=== PATIENT | female | born 1945 | race Two or more races ===

== ENCOUNTER 2017-05-07 18:07 | Inpatient (IN) | payer MEDICARE, OTHER ==
[~2017-05-07] VITALS: Ht 157.5 cm; Wt 65.9 kg
[~2017-05-07 18:07] MED LIST: ALLO100T PO; AMLO2.5T29 PO; ARIP20TA PO; GABA800T PO; HYDROMORPHONE 4 MG PO; INSU100V12 SQ; LEVO75TA4 PO; LIDOP TD; MERO1I IV; METF10002 PO; OMEP40CA12 PO; PRAS5TAB3 PO; PRAV10TA2 PO; RALO60 PO; TRAZ-147 PO; VITAD1000 PO
[2017-05-07] MEDS ORDERED: DEXTROSE 50%-WATER 25 GM/50 ML SYRINGE IVP PRN (18:30)
[2017-05-07] MEDS ORDERED: INSULIN ASPART 100 UNITS/ML SQ PRN (18:30)
[2017-05-07] MEDS ORDERED: POTASSIUM CHL 10 MEQ/WATER 50 ML IV PRN (18:45)
[2017-05-07] MEDS ORDERED: POTASSIUM CHLORIDE 20 MEQ ER TABLET PO PRN (18:45)
[2017-05-07] MEDS ORDERED: MAGNESIUM SULFATE 2 GM in DEXTROSE 5%-WATER 50 ML IV PRN (18:45)
[2017-05-07] MEDS ORDERED: MAGNESIUM SULFATE 4 GM/WATER 100 ML IV PRN (18:45)
[2017-05-07 19:06] VITALS: BP 98/55
[2017-05-07 20:12] LABS: BASOPHILS # (AUTO) 0.04 K/uL (0.00-0.20); BASOPHILS % (AUTO) 0.7 % (0.0-2.0); EOSINOPHILS # (AUTO) 0.21 K/uL (0.00-0.70); HEMATOCRIT 31.2 % (36-46); HEMOGLOBIN 10.5 g/dL (12.0-16.0); LYMPHOCYTES # (AUTO) 1.9 K/uL (1.0-4.8); LYMPHOCYTES % (AUTO) 33.5 % (22.0-44.0); MEAN CORPUSCULAR HEMOGLOBIN 31.6 pg (26.0-34.0); MEAN CORPUSCULAR HGB CONC 33.8 G/dL (31.0-37.0); MEAN CORPUSCULAR VOLUME 94 fL (80-100); MONOCYTES # (AUTO) 0.4 K/uL (0.1-1.0); MONOCYTES % (AUTO) 6.9 % (2.0-9.0); NEUTROPHILS # (AUTO) 3.1 K/uL (1.8-7.7); NEUTROPHILS % (AUTO) 55.3 % (40.0-70.0); PLATELET COUNT (AUTO) 245 K/uL (150-450); RED BLOOD CELL COUNT(AUTO) 3.33 MIL/uL (4.00-5.20); RED CELL DISTRIBUTION WIDTH 17.3 % (11.5-14.5); WHITE BLOOD COUNT (AUTO) 5.6 K/uL (4.5-11.0)
[2017-05-07 20:18] LABS: ALBUMIN 3.5 g/dL (3.4-5.0); BILIRUBIN,TOTAL 0.2 mg/dL (0.1-1.0); CALCIUM, TOTAL 9.1 mg/dL (8.8-10.5); CREATININE 1.46 mg/dL (0.60-1.30); POTASSIUM 4.1 mmol/L (3.5-5.1); TOTAL PROTEIN, SERUM 7.1 g/dL (6.4-8.2)
[2017-05-07] MEDS: GABAPENTIN 400 MG CAPSULE PO SCH (21:20)
[2017-05-07] MEDS: TraZODone HCL 150 MG TABLET PO SCH (21:20)
[2017-05-07 21:43] LABS: GLUCOSE,POINT OF CARE 98 MG/DL (70-110)
[2017-05-07 22:41] LABS: RBC MORPHOLOGY COMMENT ABNORMAL RBC MORPH
[2017-05-08] VITALS (7 sets, daily range): BP systolic 110–147; BP diastolic 65–86
[2017-05-08] MEDS: LEVOTHYROXINE SODIUM 50 MCG TABLET PO SCH (05:25)
[2017-05-08 06:32] LABS: BASOPHILS % (AUTO) 0.8 % (0.0-2.0); EOSINOPHILS % (AUTO) 4.8 % (1.0-6.0); HEMATOCRIT 31.4 % (36-46); HEMOGLOBIN 10.7 g/dL (12.0-16.0); LYMPHOCYTES # (AUTO) 1.8 K/uL (1.0-4.8); LYMPHOCYTES % (AUTO) 38.4 % (22.0-44.0); MEAN CORPUSCULAR HGB CONC 34.1 G/dL (31.0-37.0); MEAN CORPUSCULAR VOLUME 94 fL (80-100); MONOCYTES # (AUTO) 0.4 K/uL (0.1-1.0); MONOCYTES % (AUTO) 8.2 % (2.0-9.0); NEUTROPHILS # (AUTO) 2.2 K/uL (1.8-7.7); NEUTROPHILS % (AUTO) 47.8 % (40.0-70.0); PLATELET COUNT (AUTO) 224 K/uL (150-450); RED BLOOD CELL COUNT(AUTO) 3.35 MIL/uL (4.00-5.20); RED CELL DISTRIBUTION WIDTH 16.9 % (11.5-14.5); WHITE BLOOD COUNT (AUTO) 4.7 K/uL (4.5-11.0)
[2017-05-08 06:58] LABS: ALBUMIN 3.2 g/dL (3.4-5.0); BILIRUBIN,TOTAL 0.3 mg/dL (0.1-1.0); CALCIUM, TOTAL 8.7 mg/dL (8.8-10.5); CREATININE 1.47 mg/dL (0.60-1.30); MAGNESIUM 1.7 mg/dL (1.80-2.40); PHOSPHORUS 4.4 mg/dL (2.5-4.9); POTASSIUM 4.1 mmol/L (3.5-5.1); TOTAL PROTEIN, SERUM 6.5 g/dL (6.4-8.2)
[2017-05-08 08:45] LABS: APPEARANCE,URINE CLOUDY (CLEAR); GLUCOSE, URINE (UA) NEGATIVE (NEGATIVE); KETONES,URINE NEGATIVE (NEGATIVE); LEUKOCYTE ESTERASE ,URINE MODERATE (NEGATIVE); OCCULT BLOOD,URINE NEGATIVE (NEGATIVE); PROTEIN,URINE NEGATIVE (NEGATIVE)
[2017-05-08] MEDS: MetFORMIN HCL 500 MG TABLET PO SCH ×2 (08:53→17:15)
[2017-05-08] MEDS: GABAPENTIN 400 MG CAPSULE PO SCH ×4 (08:53→20:20)
[2017-05-08] MEDS: OMEPRAZOLE 20 MG CAPSULE PO SCH (08:54)
[2017-05-08] MEDS: ARIPiprazole 10 MG TABLET PO SCH (08:54)
[2017-05-08] MEDS: PRAVASTATIN SODIUM 20 MG TABLET PO SCH (08:54)
[2017-05-08] MEDS: PRASUGREL HCL 10 MG TABLET PO SCH (08:54)
[2017-05-08] MEDS ORDERED: LOSARTAN POTASSIUM 25 MG TABLET PO SCH (09:00)
[2017-05-08 09:04] LABS: ADD UA MICROSCOPIC YES; RBC,URINE 0-2 /HPF (0-2); SQUAMOUS EPITHELIAL CELL,UR Few /LPF (None Seen); WBC,URINE 51-100 /HPF (0-5)
[2017-05-08 09:09] LABS: INFLUENZA TYPE B NEGATIVE FOR TYPE B (NEGATIVE)
[2017-05-08 11:28] LABS: GLUCOSE,POINT OF CARE 100 MG/DL (70-110)
[2017-05-08] MEDS: ENOXAPARIN SODIUM 30 MG/0.3 ML PF SYRINGE SQ SCH (11:54)
[2017-05-08] MEDS ORDERED: SODIUM CHLORIDE 0.9% 1,000 ML IV ONE (12:15)
[2017-05-08] MEDS: MAGNESIUM OXIDE 400 MG TABLET PO PRN ×2 (12:21→20:20)
[2017-05-08] MEDS: MEROPENEM 1 GM in SODIUM CHLORIDE 0.9% 100 ML IV SCH ×2 (13:11→23:10)
[2017-05-08 19:57] LABS: GLUCOSE,POINT OF CARE 135 MG/DL (70-110)
[2017-05-08 19:57] LABS: GLUCOSE,POINT OF CARE 99 MG/DL (70-110)
[2017-05-08] MEDS: TraZODone HCL 150 MG TABLET PO SCH (20:19)
[2017-05-08 21:28] LABS: GLUCOSE,POINT OF CARE 110 MG/DL (70-110)
[2017-05-09 05:14] VITALS: BP 124/82
[2017-05-09] MEDS: LEVOTHYROXINE SODIUM 50 MCG TABLET PO SCH (05:57)
[2017-05-09 07:11] VITALS: BP 128/72
[2017-05-09 07:34] LABS: ALBUMIN 3.1 g/dL (3.4-5.0); BILIRUBIN,TOTAL 0.2 mg/dL (0.1-1.0); CALCIUM, TOTAL 8.4 mg/dL (8.8-10.5); CREATININE 1.29 mg/dL (0.60-1.30); MAGNESIUM 1.7 mg/dL (1.80-2.40); PHOSPHORUS 3.2 mg/dL (2.5-4.9); POTASSIUM 4.3 mmol/L (3.5-5.1); TOTAL PROTEIN, SERUM 6.9 g/dL (6.4-8.2)
[2017-05-09 07:37] LABS: BASOPHILS # (AUTO) 0.05 K/uL (0.00-0.20); BASOPHILS % (AUTO) 0.7 % (0.0-2.0); EOSINOPHILS # (AUTO) 0.27 K/uL (0.00-0.70); EOSINOPHILS % (AUTO) 3.96 % (1.0-6.0); HEMATOCRIT 33.3 % (36-46); HEMOGLOBIN 11.2 g/dL (12.0-16.0); LYMPHOCYTES # (AUTO) 2.2 K/uL (1.0-4.8); LYMPHOCYTES % (AUTO) 32.2 % (22.0-44.0); MEAN CORPUSCULAR HEMOGLOBIN 31.6 pg (26.0-34.0); MEAN CORPUSCULAR HGB CONC 33.7 G/dL (31.0-37.0); MEAN CORPUSCULAR VOLUME 94 fL (80-100); MONOCYTES # (AUTO) 0.4 K/uL (0.1-1.0); MONOCYTES % (AUTO) 6.4 % (2.0-9.0); NEUTROPHILS # (AUTO) 3.8 K/uL (1.8-7.7); NEUTROPHILS % (AUTO) 56.8 % (40.0-70.0); PLATELET COUNT (AUTO) 219 K/uL (150-450); RED BLOOD CELL COUNT(AUTO) 3.54 MIL/uL (4.00-5.20); RED CELL DISTRIBUTION WIDTH 17.2 % (11.5-14.5); WHITE BLOOD COUNT (AUTO) 6.8 K/uL (4.5-11.0)
[2017-05-09 07:39] LABS: RBC MORPHOLOGY COMMENT ABNORMAL RBC MORPH
[2017-05-09] MEDS: MetFORMIN HCL 500 MG TABLET PO SCH ×2 (08:02→17:47)
[2017-05-09] MEDS: OMEPRAZOLE 20 MG CAPSULE PO SCH (08:02)
[2017-05-09] MEDS: PRASUGREL HCL 10 MG TABLET PO SCH (08:02)
[2017-05-09] MEDS: PRAVASTATIN SODIUM 20 MG TABLET PO SCH (08:02)
[2017-05-09] MEDS: ARIPiprazole 10 MG TABLET PO SCH (08:02)
[2017-05-09] MEDS: ENOXAPARIN SODIUM 30 MG/0.3 ML PF SYRINGE SQ SCH (08:03)
[2017-05-09] MEDS: GABAPENTIN 400 MG CAPSULE PO SCH ×4 (08:04→20:04)
[2017-05-09 10:57] LABS: INR 0.9 (0.9-1.1)
[2017-05-09 11:42] VITALS: BP 119/77
[2017-05-09] MEDS: MEROPENEM 1 GM in SODIUM CHLORIDE 0.9% 100 ML IV SCH ×2 (11:57→23:25)
[2017-05-09] MEDS ORDERED: SODIUM CHLORIDE 0.9% 1,000 ML IV ONE (15:17)
[2017-05-09 16:06] VITALS: BP 134/90
[2017-05-09] MEDS: MAGNESIUM OXIDE 400 MG TABLET PO PRN ×2 (18:05→23:26)
[2017-05-09] MEDS: TraZODone HCL 150 MG TABLET PO SCH (20:04)
[2017-05-09 20:05] VITALS: BP 137/73
[2017-05-09 23:10] VITALS: BP 102/61
[2017-05-10 01:52] LABS: GLUCOSE,POINT OF CARE 113 MG/DL (70-110)
[2017-05-10 01:53] LABS: GLUCOSE,POINT OF CARE 102 MG/DL (70-110)
[2017-05-10 04:50] VITALS: BP 116/75
[2017-05-10] MEDS: LEVOTHYROXINE SODIUM 50 MCG TABLET PO SCH (05:13)
[2017-05-10 06:54] LABS: BASOPHILS # (AUTO) 0.04 K/uL (0.00-0.20); BASOPHILS % (AUTO) 0.7 % (0.0-2.0); EOSINOPHILS # (AUTO) 0.23 K/uL (0.00-0.70); EOSINOPHILS % (AUTO) 3.88 % (1.0-6.0); HEMATOCRIT 30.8 % (36-46); HEMOGLOBIN 10.4 g/dL (12.0-16.0); LYMPHOCYTES # (AUTO) 1.3 K/uL (1.0-4.8); MEAN CORPUSCULAR HEMOGLOBIN 31.4 pg (26.0-34.0); MEAN CORPUSCULAR HGB CONC 33.9 G/dL (31.0-37.0); MEAN CORPUSCULAR VOLUME 93 fL (80-100); MONOCYTES # (AUTO) 0.3 K/uL (0.1-1.0); MONOCYTES % (AUTO) 5.6 % (2.0-9.0); NEUTROPHILS # (AUTO) 4.1 K/uL (1.8-7.7); NEUTROPHILS % (AUTO) 67.9 % (40.0-70.0); PLATELET COUNT (AUTO) 202 K/uL (150-450); RED BLOOD CELL COUNT(AUTO) 3.32 MIL/uL (4.00-5.20); WHITE BLOOD COUNT (AUTO) 6.1 K/uL (4.5-11.0)
[2017-05-10 07:13] LABS: ALBUMIN 3.1 g/dL (3.4-5.0); BILIRUBIN,TOTAL 0.2 mg/dL (0.1-1.0); CALCIUM, TOTAL 8.3 mg/dL (8.8-10.5); CREATININE 1.24 mg/dL (0.60-1.30); MAGNESIUM 1.9 mg/dL (1.80-2.40); PHOSPHORUS 2.8 mg/dL (2.5-4.9); POTASSIUM 4.1 mmol/L (3.5-5.1); TOTAL PROTEIN, SERUM 6.5 g/dL (6.4-8.2)
[2017-05-10 07:35] VITALS: BP 120/77
[2017-05-10] MEDS: ENOXAPARIN SODIUM 30 MG/0.3 ML PF SYRINGE SQ SCH (08:03)
[2017-05-10] MEDS: PRASUGREL HCL 10 MG TABLET PO SCH (08:03)
[2017-05-10] MEDS: GABAPENTIN 400 MG CAPSULE PO SCH ×4 (08:03→21:20)
[2017-05-10] MEDS: PRAVASTATIN SODIUM 20 MG TABLET PO SCH (08:04)
[2017-05-10] MEDS: OMEPRAZOLE 20 MG CAPSULE PO SCH (08:04)
[2017-05-10] MEDS: MetFORMIN HCL 500 MG TABLET PO SCH ×2 (08:04→17:07)
[2017-05-10] MEDS: ARIPiprazole 10 MG TABLET PO SCH (08:05)
[2017-05-10 08:31] LABS: RBC MORPHOLOGY COMMENT ABNORMAL RBC MORPH
[2017-05-10 10:17] LABS: TOTAL PROTEIN URINE 14.9 mg/dL (Not Estab.)
[2017-05-10 11:44] VITALS: BP 115/68
[2017-05-10] MEDS: MEROPENEM 1 GM in SODIUM CHLORIDE 0.9% 100 ML IV SCH (11:55)
[2017-05-10 12:56] LABS: MYOGLOBIN URINE <2 ng/mL (0-13)
[2017-05-10 15:32] LABS: GLUCOSE,POINT OF CARE 90 MG/DL (70-110)
[2017-05-10 15:46] VITALS: BP 116/81
[2017-05-10 20:11] VITALS: BP 124/78
[2017-05-10] MEDS: TraZODone HCL 150 MG TABLET PO SCH (21:20)
[2017-05-10] MEDS: CefoTEtan DISOD 2 GM/DEXTROSE 50 ML IV SCH (21:20)
[2017-05-10] MEDS ORDERED: AZITHROMYCIN 250 MG TABLET PO ONE (22:00)
[2017-05-11 00:14] VITALS: BP 104/57
[2017-05-11 04:35] VITALS: BP 120/77
[2017-05-11] MEDS: LEVOTHYROXINE SODIUM 50 MCG TABLET PO SCH (06:35)
[2017-05-11 06:53] LABS: GLUCOSE,POINT OF CARE 93 MG/DL (70-110)
[2017-05-11 06:53] LABS: GLUCOSE,POINT OF CARE 93 MG/DL (70-110)
[2017-05-11 07:00] LABS: BILIRUBIN,TOTAL 0.2 mg/dL (0.1-1.0); CALCIUM, TOTAL 8.2 mg/dL (8.8-10.5); CREATININE 1.22 mg/dL (0.60-1.30); MAGNESIUM 1.9 mg/dL (1.80-2.40); PHOSPHORUS 2.4 mg/dL (2.5-4.9); POTASSIUM 4.2 mmol/L (3.5-5.1); TOTAL PROTEIN, SERUM 6.5 g/dL (6.4-8.2)
[2017-05-11 07:16] LABS: BASOPHILS % (AUTO) 0.6 % (0.0-2.0); EOSINOPHILS % (AUTO) 3.9 % (1.0-6.0); HEMATOCRIT 30.3 % (36-46); HEMOGLOBIN 10.1 g/dL (12.0-16.0); LYMPHOCYTES # (AUTO) 1.6 K/uL (1.0-4.8); LYMPHOCYTES % (AUTO) 29.4 % (22.0-44.0); MEAN CORPUSCULAR HEMOGLOBIN 31.6 pg (26.0-34.0); MEAN CORPUSCULAR HGB CONC 33.5 G/dL (31.0-37.0); MEAN CORPUSCULAR VOLUME 94 fL (80-100); MONOCYTES # (AUTO) 0.4 K/uL (0.1-1.0); NEUTROPHILS # (AUTO) 3.1 K/uL (1.8-7.7); NEUTROPHILS % (AUTO) 58.1 % (40.0-70.0); PLATELET COUNT (AUTO) 206 K/uL (150-450); RED BLOOD CELL COUNT(AUTO) 3.21 MIL/uL (4.00-5.20); RED CELL DISTRIBUTION WIDTH 17.4 % (11.5-14.5); WHITE BLOOD COUNT (AUTO) 5.3 K/uL (4.5-11.0)
[2017-05-11 08:05] VITALS: BP 121/67
[2017-05-11] MEDS: ENOXAPARIN SODIUM 30 MG/0.3 ML PF SYRINGE SQ SCH (08:13)
[2017-05-11] MEDS: OMEPRAZOLE 20 MG CAPSULE PO SCH (08:14)
[2017-05-11] MEDS: AZITHROMYCIN 250 MG TABLET PO SCH (08:14)
[2017-05-11] MEDS: PRASUGREL HCL 10 MG TABLET PO SCH (08:14)
[2017-05-11] MEDS: MetFORMIN HCL 500 MG TABLET PO SCH ×2 (08:14→17:53)
[2017-05-11] MEDS: PRAVASTATIN SODIUM 20 MG TABLET PO SCH (08:14)
[2017-05-11] MEDS: GABAPENTIN 400 MG CAPSULE PO SCH ×4 (08:15→20:45)
[2017-05-11] MEDS: ARIPiprazole 10 MG TABLET PO SCH (08:15)
[2017-05-11 09:08] LABS: RBC MORPHOLOGY COMMENT ABNORMAL RBC MORPH
[2017-05-11 11:25] VITALS: BP 121/74
[2017-05-11 12:32] LABS: ORGANISM ID Not indicated.
[2017-05-11 16:38] VITALS: BP 125/79
[2017-05-11 20:00] VITALS: BP 110/60
[2017-05-11] MEDS: CefoTEtan DISOD 2 GM/DEXTROSE 50 ML IV SCH (20:44)
[2017-05-11] MEDS: TraZODone HCL 150 MG TABLET PO SCH (20:44)
[2017-05-12] VITALS: BP 103/65
[2017-05-12 04:06] VITALS: BP 109/63
[2017-05-12] MEDS: LEVOTHYROXINE SODIUM 50 MCG TABLET PO SCH (06:26)
[2017-05-12 06:38] LABS: GLUCOSE,POINT OF CARE 93 MG/DL (70-110)
[2017-05-12 06:43] LABS: GLUCOSE,POINT OF CARE 102 MG/DL (70-110)
[2017-05-12 06:44] LABS: GLUCOSE,POINT OF CARE 102 MG/DL (70-110)
[2017-05-12 06:48] LABS: GLUCOSE,POINT OF CARE 86 MG/DL (70-110)
[2017-05-12 06:48] LABS: GLUCOSE,POINT OF CARE 100 MG/DL (70-110)
[2017-05-12 06:48] LABS: GLUCOSE,POINT OF CARE 107 MG/DL (70-110)
[2017-05-12 06:48] LABS: GLUCOSE,POINT OF CARE 85 MG/DL (70-110)
[2017-05-12 06:48] LABS: GLUCOSE,POINT OF CARE 100 MG/DL (70-110)
[2017-05-12 07:41] VITALS: BP 107/68
[2017-05-12] MEDS: ENOXAPARIN SODIUM 30 MG/0.3 ML PF SYRINGE SQ SCH (08:12)
[2017-05-12] MEDS: PRAVASTATIN SODIUM 20 MG TABLET PO SCH (08:13)
[2017-05-12] MEDS: ARIPiprazole 10 MG TABLET PO SCH (08:13)
[2017-05-12] MEDS: OMEPRAZOLE 20 MG CAPSULE PO SCH (08:13)
[2017-05-12] MEDS: AZITHROMYCIN 250 MG TABLET PO SCH (08:13)
[2017-05-12] MEDS: GABAPENTIN 400 MG CAPSULE PO SCH ×2 (08:13→13:32)
[2017-05-12] MEDS: PRASUGREL HCL 10 MG TABLET PO SCH (08:13)
[2017-05-12] MEDS: MetFORMIN HCL 500 MG TABLET PO SCH (08:13)
[2017-05-12] MEDS ORDERED: CEFO2I IV (10:13)
[2017-05-12] MEDS ORDERED: AZIT250T9 PO (10:14)
[2017-05-12] MEDS ORDERED: TRAZ150 PO (10:15)
[2017-05-12 12:07] LABS: GLUCOSE,POINT OF CARE 112 MG/DL (70-110)
[2017-05-14 11:03] LABS: ALBUMIN/GLOBULIN RAITO (PEP) 1.1 (0.7-1.7); ALPHA-1 GLOBULINS(PEP) 0.2 g/dL (0.0-0.4); ALPHA-2 GLOBULINS (PEP) 0.8 g/dL (0.4-1.0); BETA (PEP) 0.9 g/dL (0.7-1.3); GLOBULIN TOTAL (PEP) 2.9 g/dL (2.2-3.9); M-SPIKE (PEP) Not Observed g/dL (Not Observed); TOTAL PROTEIN 6.2 g/dL (6.0-8.5)
[2017-05-15 05:07] LABS: TOTAL PROTEIN URINE 9.2 mg/dL (Not Estab.)
== END 2017-05-12 14:05 | disposition home or self-care (01) | DRG 698 ==
LOC: 6N 18:15
PROVIDERS: ADMIT Internal Medicine; ATTEND Internal Medicine
PROC: 02HV33Z Insertion of Infusion Device into Superior Vena Cava, Percutaneous Approach (ICD-10-PCS; principal; 2017-05-07)
DX: N14.2 Nephropathy induced by unspecified drug, medicament or biological substance (principal); J18.9 Pneumonia, unspecified organism; D70.9 Neutropenia, unspecified; E11.22 Type 2 diabetes mellitus with diabetic chronic kidney disease; E11.42 Type 2 diabetes mellitus with diabetic polyneuropathy; J47.0 Bronchiectasis with acute lower respiratory infection; N39.0 Urinary tract infection, site not specified; E44.1 Mild protein-calorie malnutrition; J21.9 Acute bronchiolitis, unspecified; Z94.0 Kidney transplant status; B96.20 Unspecified Escherichia coli [E. coli] as the cause of diseases classified elsewhere; E03.9 Hypothyroidism, unspecified; E78.2 Mixed hyperlipidemia; F32.9 Major depressive disorder, single episode, unspecified; G89.4 Chronic pain syndrome; H91.90 Unspecified hearing loss, unspecified ear; I13.10 Hypertensive heart and chronic kidney disease without heart failure, with stage 1 through stage 4 chronic kidney disease, or unspecified chronic kidney disease; I25.10 Atherosclerotic heart disease of native coronary artery without angina pectoris; I25.83 Coronary atherosclerosis due to lipid rich plaque; I70.0 Atherosclerosis of aorta; J43.9 Emphysema, unspecified; K21.9 Gastro-esophageal reflux disease without esophagitis; M10.9 Gout, unspecified; M48.07 Spinal stenosis, lumbosacral region; M81.0 Age-related osteoporosis without current pathological fracture; N18.3 Chronic kidney disease, stage 3 (moderate); Z16.12 Extended spectrum beta lactamase (ESBL) resistance; Z16.24 Resistance to multiple antibiotics; Z85.118 Personal history of other malignant neoplasm of bronchus and lung; Z87.440 Personal history of urinary (tract) infections; Z87.442 Personal history of urinary calculi; Z87.891 Personal history of nicotine dependence; Z90.710 Acquired absence of both cervix and uterus; Z91.19 Patient's noncompliance with other medical treatment and regimen; Z92.21 Personal history of antineoplastic chemotherapy; Z92.3 Personal history of irradiation; Z98.61 Coronary angioplasty status; T50.905A Adverse effect of unspecified drugs, medicaments and biological substances, initial encounter
CPT/HCPCS: 36245; 36569; 71020; 71250; 76770; 76937; 82043; 82570; 82607; 82668; 82746; 82962; 83540; 83550; 83735; 83874; 84100; 84145; 84155; 84156; 84165; 84166; 84300; 86738; 87040; 87081; 87086; 87449; 87804; 87899; J1650; J2185; J3490; J7030; J7050

== ENCOUNTER 2017-06-27 14:07 | Inpatient (IN) | payer MEDICARE, OTHER ==
[~2017-06-27] VITALS: Ht 157.5 cm; Wt 63.8 kg
[~2017-06-27 14:07] MED LIST changes: -ALLO100T PO; -AMLO2.5T29 PO; +AZIT250T9 PO; +CEFO2I IV; -INSU100V12 SQ; -LIDOP TD; -MERO1I IV; -RALO60 PO; -TRAZ-147 PO; +TRAZ150 PO; -VITAD1000 PO
[2017-06-27 14:39] VITALS: BP 114/64
[2017-06-27] MEDS ORDERED: OMEP20 PO (15:52)
[2017-06-27] MEDS ORDERED: LOSA25TA21 PO (15:52)
[2017-06-27] MEDS ORDERED: TAPE200T PO (15:52)
[2017-06-27] MEDS ORDERED: HYDR2 PO (15:52)
[2017-06-27] MEDS ORDERED: ALLO100T PO (15:52)
[2017-06-27] MEDS ORDERED: LEVO50 PO (16:10)
[2017-06-27] MEDS: GABAPENTIN 400 MG CAPSULE PO SCH ×2 (16:15→20:10)
[2017-06-27] MEDS: MetFORMIN HCL 500 MG TABLET PO SCH (18:15)
[2017-06-27 19:27] LABS: BASOPHILS % (AUTO) 0.9 % (0.0-2.0); EOSINOPHILS % (AUTO) 4.6 % (1.0-6.0); HEMATOCRIT 29.3 % (36-46); LYMPHOCYTES # (AUTO) 2.1 K/uL (1.0-4.8); LYMPHOCYTES % (AUTO) 30.6 % (22.0-44.0); MEAN CORPUSCULAR HGB CONC 34.3 G/dL (31.0-37.0); MEAN CORPUSCULAR VOLUME 93 fL (80-100); MONOCYTES # (AUTO) 0.4 K/uL (0.1-1.0); MONOCYTES % (AUTO) 6.1 % (2.0-9.0); NEUTROPHILS % (AUTO) 57.8 % (40.0-70.0); PLATELET COUNT (AUTO) 245 K/uL (150-450); RED BLOOD CELL COUNT(AUTO) 3.14 MIL/uL (4.00-5.20); RED CELL DISTRIBUTION WIDTH 16.3 % (11.5-14.5)
[2017-06-27 19:35] VITALS: BP 128/77
[2017-06-27 19:53] LABS: ALBUMIN 3.3 g/dL (3.4-5.0); BILIRUBIN,TOTAL 0.2 mg/dL (0.1-1.0); CALCIUM, TOTAL 8.8 mg/dL (8.8-10.5); CREATININE 1.53 mg/dL (0.60-1.30); MAGNESIUM 1.7 mg/dL (1.80-2.40); POTASSIUM 4.9 mmol/L (3.5-5.1); TOTAL PROTEIN, SERUM 6.8 g/dL (6.4-8.2)
[2017-06-27] MEDS: TraZODone HCL 150 MG TABLET PO SCH (20:09)
[2017-06-27 20:54] LABS: APPEARANCE,URINE CLOUDY (CLEAR); GLUCOSE, URINE (UA) NEGATIVE (NEGATIVE); KETONES,URINE NEGATIVE (NEGATIVE); LEUKOCYTE ESTERASE ,URINE LARGE (NEGATIVE); OCCULT BLOOD,URINE TRACE (NEGATIVE); PH,URINE 5.5 (5.0-8.0); PROTEIN,URINE NEGATIVE (NEGATIVE)
[2017-06-27 20:55] LABS: ADD UA MICROSCOPIC YES
[2017-06-27 20:58] LABS: SQUAMOUS EPITHELIAL CELL,UR Few /LPF (None Seen); WBC,URINE 51-100 /HPF (0-5)
[2017-06-27] MEDS ORDERED: [UNRECOGNIZED DRUG - OTHER] PO SCH (21:00)
[2017-06-27] MEDS ORDERED: MAGNESIUM SULFATE 4 GM/WATER 100 ML IV PRN (22:00)
[2017-06-27] MEDS ORDERED: MAGNESIUM SULFATE 2 GM in DEXTROSE 5%-WATER 50 ML IV PRN (22:00)
[2017-06-27] MEDS: MAGNESIUM OXIDE 400 MG TABLET PO PRN (22:27)
[2017-06-27 23:49] VITALS: BP 112/63
[2017-06-28] MEDS: MAGNESIUM OXIDE 400 MG TABLET PO PRN ×2 (04:26→11:39)
[2017-06-28 04:31] VITALS: BP 118/72
[2017-06-28 06:59] LABS: BASOPHILS # (AUTO) 0.04 K/uL (0.00-0.20); BASOPHILS % (AUTO) 0.7 % (0.0-2.0); EOSINOPHILS # (AUTO) 0.26 K/uL (0.00-0.70); EOSINOPHILS % (AUTO) 4.63 % (1.0-6.0); HEMATOCRIT 30.4 % (36-46); HEMOGLOBIN 10.2 g/dL (12.0-16.0); LYMPHOCYTES # (AUTO) 1.8 K/uL (1.0-4.8); LYMPHOCYTES % (AUTO) 31.8 % (22.0-44.0); MEAN CORPUSCULAR HEMOGLOBIN 31.7 pg (26.0-34.0); MEAN CORPUSCULAR HGB CONC 33.6 G/dL (31.0-37.0); MEAN CORPUSCULAR VOLUME 94 fL (80-100); MONOCYTES # (AUTO) 0.4 K/uL (0.1-1.0); MONOCYTES % (AUTO) 7.4 % (2.0-9.0); NEUTROPHILS # (AUTO) 3.1 K/uL (1.8-7.7); NEUTROPHILS % (AUTO) 55.6 % (40.0-70.0); PLATELET COUNT (AUTO) 238 K/uL (150-450); RED BLOOD CELL COUNT(AUTO) 3.23 MIL/uL (4.00-5.20); RED CELL DISTRIBUTION WIDTH 15.8 % (11.5-14.5); WHITE BLOOD COUNT (AUTO) 5.6 K/uL (4.5-11.0)
[2017-06-28 07:06] VITALS: BP 132/90
[2017-06-28 07:07] LABS: CALCIUM, TOTAL 8.8 mg/dL (8.8-10.5); CHOL/HDL RATIO 2.8 (3.9-5.7); CREATININE 1.36 mg/dL (0.60-1.30); MAGNESIUM 1.6 mg/dL (1.80-2.40); POTASSIUM 4.5 mmol/L (3.5-5.1); URIC ACID 5.4 mg/dL (2.6-7.2)
[2017-06-28 08:17] LABS: GLUCOSE,POINT OF CARE 72 MG/DL (70-110)
[2017-06-28] MEDS: GABAPENTIN 400 MG CAPSULE PO SCH ×4 (09:40→21:05)
[2017-06-28] MEDS: OMEPRAZOLE 20 MG CAPSULE PO SCH (09:40)
[2017-06-28] MEDS: MetFORMIN HCL 500 MG TABLET PO SCH ×2 (09:40→17:39)
[2017-06-28] MEDS: LEVOTHYROXINE SODIUM 50 MCG TABLET PO SCH (09:41)
[2017-06-28] MEDS: ALLOPURINOL 100 MG TABLET PO SCH (09:41)
[2017-06-28] MEDS: PRAVASTATIN SODIUM 20 MG TABLET PO SCH (09:41)
[2017-06-28] MEDS: LOSARTAN POTASSIUM 25 MG TABLET PO SCH (09:41)
[2017-06-28 10:13] LABS: THYROID STIMULATING HORMONE 56.34 uIU/mL (0.36-3.74)
[2017-06-28 11:32] VITALS: BP 92/49
[2017-06-28 15:12] LABS: GLUCOSE,POINT OF CARE 129 MG/DL (70-110)
[2017-06-28 15:51] VITALS: BP 114/74
[2017-06-28] MEDS ORDERED: DEXTROSE 50%-WATER 25 GM/50 ML SYRINGE IVP PRN (18:00)
[2017-06-28 18:13] LABS: GLUCOSE,POINT OF CARE 148 MG/DL (70-110)
[2017-06-28] MEDS: INSULIN ASPART 100 UNITS/ML SQ PRN (18:29)
[2017-06-28] MEDS ORDERED: *CLINICAL-LEVOFLOXACIN IVPB DOSING CLINICAL ONE ×2 (18:30)
[2017-06-28] MEDS ORDERED: LEVOFLOXACIN 750 MG/D5% WATER 150 ML IV SCH (19:00)
[2017-06-28 19:34] VITALS: BP 133/63
[2017-06-28] MEDS: TraZODone HCL 150 MG TABLET PO SCH (21:04)
[2017-06-28] MEDS ORDERED: SODIUM CHLORIDE 0.9% 500 ML IV ONE (21:07)
[2017-06-28 22:32] LABS: GLUCOSE,POINT OF CARE 134 MG/DL (70-110)
[2017-06-28 23:11] VITALS: BP 112/59
[2017-06-29 04:50] VITALS: BP 101/60
[2017-06-29] MEDS: LEVOTHYROXINE SODIUM 50 MCG TABLET PO SCH (06:07)
[2017-06-29 06:43] LABS: GLUCOSE,POINT OF CARE 101 MG/DL (70-110)
[2017-06-29 08:06] VITALS: BP 105/52
[2017-06-29] MEDS: PRAVASTATIN SODIUM 20 MG TABLET PO SCH (08:37)
[2017-06-29] MEDS: LOSARTAN POTASSIUM 25 MG TABLET PO SCH (08:37)
[2017-06-29] MEDS: GABAPENTIN 400 MG CAPSULE PO SCH ×4 (08:37→21:56)
[2017-06-29] MEDS: ALLOPURINOL 100 MG TABLET PO SCH (08:37)
[2017-06-29] MEDS: MetFORMIN HCL 500 MG TABLET PO SCH ×2 (08:37→17:39)
[2017-06-29] MEDS: OMEPRAZOLE 20 MG CAPSULE PO SCH (08:37)
[2017-06-29 10:14] LABS: INR 1.1 (0.9-1.1); PROTHROMBIN TIME 11.1 SEC (9.4-11.6)
[2017-06-29 11:48] VITALS: BP 107/60
[2017-06-29] MEDS: INSULIN ASPART 100 UNITS/ML SQ PRN ×2 (11:53→17:22)
[2017-06-29 13:42] LABS: GLUCOSE,POINT OF CARE 118 MG/DL (70-110)
[2017-06-29] MEDS ORDERED: IMIPENEM/CILASTATIN SODIUM 500 MG in SODIUM CHLORIDE 0.9% 100 ML IV SCH (14:00)
[2017-06-29 15:47] VITALS: BP 133/81
[2017-06-29 18:32] LABS: GLUCOSE,POINT OF CARE 108 MG/DL (70-110)
[2017-06-29 19:01] VITALS: BP 124/85
[2017-06-29] MEDS: TraZODone HCL 150 MG TABLET PO SCH (21:56)
[2017-06-29 23:21] VITALS: BP 95/50
[2017-06-29] MEDS: CefoTEtan DISOD 1 GM/DEXTROSE 50 ML IV SCH (23:30)
[2017-06-29 23:52] LABS: GLUCOSE,POINT OF CARE 78 MG/DL (70-110)
[2017-06-30 05:33] VITALS: BP 129/58
[2017-06-30] MEDS: LEVOTHYROXINE SODIUM 50 MCG TABLET PO SCH (05:52)
[2017-06-30 07:22] LABS: GLUCOSE,POINT OF CARE 84 MG/DL (70-110)
[2017-06-30 07:30] VITALS: BP 115/64
[2017-06-30] MEDS: OMEPRAZOLE 20 MG CAPSULE PO SCH (08:04)
[2017-06-30] MEDS: ALLOPURINOL 100 MG TABLET PO SCH (08:04)
[2017-06-30] MEDS: GABAPENTIN 400 MG CAPSULE PO SCH ×4 (08:04→20:45)
[2017-06-30] MEDS: PRAVASTATIN SODIUM 20 MG TABLET PO SCH (08:04)
[2017-06-30] MEDS: MetFORMIN HCL 500 MG TABLET PO SCH ×2 (08:05→17:27)
[2017-06-30] MEDS: LOSARTAN POTASSIUM 25 MG TABLET PO SCH (08:05)
[2017-06-30] MEDS ORDERED: PRAV20TA4 PO (10:40)
[2017-06-30 11:38] VITALS: BP 128/70
[2017-06-30 12:02] LABS: GLUCOSE,POINT OF CARE 100 MG/DL (70-110)
[2017-06-30 15:25] VITALS: BP 102/53
[2017-06-30 19:47] VITALS: BP 99/58
[2017-06-30] MEDS: TraZODone HCL 150 MG TABLET PO SCH (20:45)
[2017-06-30 23:13] VITALS: BP 96/66
[2017-07-01] MEDS: CefoTEtan DISOD 1 GM/DEXTROSE 50 ML IV SCH ×2 (00:21→23:08)
[2017-07-01 03:14] LABS: GLUCOSE,POINT OF CARE 110 MG/DL (70-110)
[2017-07-01 04:34] VITALS: BP 130/82
[2017-07-01] MEDS: LEVOTHYROXINE SODIUM 50 MCG TABLET PO SCH (06:29)
[2017-07-01 08:01] VITALS: BP 110/57
[2017-07-01] MEDS: PRAVASTATIN SODIUM 20 MG TABLET PO SCH (08:12)
[2017-07-01] MEDS: OMEPRAZOLE 20 MG CAPSULE PO SCH (08:12)
[2017-07-01] MEDS: ALLOPURINOL 100 MG TABLET PO SCH (08:12)
[2017-07-01] MEDS: MetFORMIN HCL 500 MG TABLET PO SCH ×2 (08:12→17:29)
[2017-07-01] MEDS: GABAPENTIN 400 MG CAPSULE PO SCH ×4 (08:12→20:17)
[2017-07-01] MEDS: LOSARTAN POTASSIUM 25 MG TABLET PO SCH (09:00)
[2017-07-01 11:13] VITALS: BP 112/57
[2017-07-01 15:12] VITALS: BP 110/56
[2017-07-01 15:12] LABS: GLUCOSE,POINT OF CARE 90 MG/DL (70-110)
[2017-07-01 15:27] LABS: GLUCOSE,POINT OF CARE 96 MG/DL (70-110)
[2017-07-01 19:27] LABS: GLUCOSE,POINT OF CARE 90 MG/DL (70-110)
[2017-07-01 20:13] VITALS: BP 100/58
[2017-07-01] MEDS: TraZODone HCL 150 MG TABLET PO SCH (20:17)
[2017-07-01] MEDS ORDERED: SODIUM CHLORIDE 0.9% 500 ML IV ONE (23:10)
[2017-07-01 23:17] LABS: GLUCOSE,POINT OF CARE 103 MG/DL (70-110)
[2017-07-01 23:58] VITALS: BP 113/74
[2017-07-02] VITALS (7 sets, daily range): BP systolic 94–127; BP diastolic 54–81
[2017-07-02 06:09] LABS: BASOPHILS % (AUTO) 0.7 % (0.0-2.0); EOSINOPHILS % (AUTO) 5.3 % (1.0-6.0); HEMOGLOBIN 10.8 g/dL (12.0-16.0); LYMPHOCYTES # (AUTO) 1.6 K/uL (1.0-4.8); MEAN CORPUSCULAR HEMOGLOBIN 32.3 pg (26.0-34.0); MEAN CORPUSCULAR HGB CONC 34.8 G/dL (31.0-37.0); MEAN CORPUSCULAR VOLUME 93 fL (80-100); MONOCYTES # (AUTO) 0.4 K/uL (0.1-1.0); MONOCYTES % (AUTO) 7.9 % (2.0-9.0); NEUTROPHILS # (AUTO) 2.9 K/uL (1.8-7.7); NEUTROPHILS % (AUTO) 55.1 % (40.0-70.0); PLATELET COUNT (AUTO) 235 K/uL (150-450); RED BLOOD CELL COUNT(AUTO) 3.35 MIL/uL (4.00-5.20); RED CELL DISTRIBUTION WIDTH 15.6 % (11.5-14.5); WHITE BLOOD COUNT (AUTO) 5.3 K/uL (4.5-11.0)
[2017-07-02 06:11] LABS: PROTHROMBIN TIME 10.4 SEC (9.4-11.6)
[2017-07-02] MEDS: LEVOTHYROXINE SODIUM 50 MCG TABLET PO SCH (06:30)
[2017-07-02 06:33] LABS: GLUCOSE,POINT OF CARE 102 MG/DL (70-110)
[2017-07-02 06:52] LABS: CREATININE 1.31 mg/dL (0.60-1.30); MAGNESIUM 1.9 mg/dL (1.80-2.40); POTASSIUM 3.9 mmol/L (3.5-5.1)
[2017-07-02] MEDS: MetFORMIN HCL 500 MG TABLET PO SCH ×2 (08:00→18:08)
[2017-07-02] MEDS: GABAPENTIN 400 MG CAPSULE PO SCH ×4 (09:00→20:12)
[2017-07-02] MEDS ORDERED: SODIUM CHLORIDE 0.9% 1,000 ML IV ONE (12:15)
[2017-07-02] MEDS ORDERED: FentaNYL CITRATE-PF 100 MCG/2 ML VIAL ONE (12:37)
[2017-07-02] MEDS ORDERED: MIDAZOLAM HCL 2 MG/2 ML VIAL ONE (12:37)
[2017-07-02] MEDS ORDERED: MIDAZOLAM HCL 2 MG/2 ML VIAL IVP ONE (13:27)
[2017-07-02 13:52] LABS: GLUCOSE,POINT OF CARE 112 MG/DL (70-110)
[2017-07-02] MEDS: PRAVASTATIN SODIUM 20 MG TABLET PO SCH (14:57)
[2017-07-02] MEDS: LOSARTAN POTASSIUM 25 MG TABLET PO SCH (14:57)
[2017-07-02] MEDS: OMEPRAZOLE 20 MG CAPSULE PO SCH (14:57)
[2017-07-02] MEDS: ALLOPURINOL 100 MG TABLET PO SCH (14:57)
[2017-07-02 17:52] LABS: GLUCOSE,POINT OF CARE 123 MG/DL (70-110)
[2017-07-02] MEDS: TraZODone HCL 150 MG TABLET PO SCH (20:12)
[2017-07-02] MEDS: INSULIN ASPART 100 UNITS/ML SQ PRN (20:22)
[2017-07-03] MEDS: CefoTEtan DISOD 1 GM/DEXTROSE 50 ML IV SCH ×2 (00:27→23:01)
[2017-07-03 04:47] VITALS: BP 101/66
[2017-07-03 06:17] LABS: GLUCOSE COMMENT 1 Received Meds; GLUCOSE,POINT OF CARE 154 MG/DL (70-110)
[2017-07-03] MEDS: LEVOTHYROXINE SODIUM 50 MCG TABLET PO SCH (06:19)
[2017-07-03 06:22] LABS: GLUCOSE,POINT OF CARE 113 MG/DL (70-110)
[2017-07-03 07:01] VITALS: BP 128/65
[2017-07-03] MEDS: MetFORMIN HCL 500 MG TABLET PO SCH (08:27)
[2017-07-03] MEDS: GABAPENTIN 400 MG CAPSULE PO SCH ×4 (08:27→20:25)
[2017-07-03] MEDS: ALLOPURINOL 100 MG TABLET PO SCH (08:27)
[2017-07-03] MEDS: PRAVASTATIN SODIUM 20 MG TABLET PO SCH (08:27)
[2017-07-03] MEDS: LOSARTAN POTASSIUM 25 MG TABLET PO SCH (08:27)
[2017-07-03] MEDS: OMEPRAZOLE 20 MG CAPSULE PO SCH (08:27)
[2017-07-03 11:20] VITALS: BP 96/52
[2017-07-03 15:28] VITALS: BP 119/70
[2017-07-03 17:32] LABS: GLUCOSE,POINT OF CARE 84 MG/DL (70-110)
[2017-07-03 18:32] LABS: GLUCOSE,POINT OF CARE 109 MG/DL (70-110)
[2017-07-03 19:50] VITALS: BP 94/59
[2017-07-03] MEDS: INSULIN ASPART 100 UNITS/ML SQ PRN (20:25)
[2017-07-03] MEDS: TraZODone HCL 150 MG TABLET PO SCH (20:25)
[2017-07-03 23:07] LABS: GLUCOSE COMMENT 1 Received Meds; GLUCOSE,POINT OF CARE 150 MG/DL (70-110)
[2017-07-03 23:13] VITALS: BP 95/56
[2017-07-04 04:55] VITALS: BP 104/71
[2017-07-04] MEDS: LEVOTHYROXINE SODIUM 50 MCG TABLET PO SCH (06:30)
[2017-07-04 08:12] VITALS: BP 118/69
[2017-07-04] MEDS ORDERED: FentaNYL CITRATE-PF 100 MCG/2 ML VIAL ONE (08:29)
[2017-07-04] MEDS ORDERED: MIDAZOLAM HCL 2 MG/2 ML VIAL ONE (08:30)
[2017-07-04] MEDS ORDERED: LIDOCAINE HCL/PF 1% 30 ML VIAL ONE (08:30)
[2017-07-04] MEDS ORDERED: SODIUM CHLORIDE 0.9% 500 ML IV ONE ×2 (09:35→23:13)
[2017-07-04] MEDS ORDERED: MIDAZOLAM HCL 2 MG/2 ML VIAL IVP ONE (10:08)
[2017-07-04] MEDS ORDERED: FentaNYL CITRATE-PF 100 MCG/2 ML VIAL IVP ONE (10:08)
[2017-07-04 10:52] LABS: GLUCOSE,POINT OF CARE 102 MG/DL (70-110)
[2017-07-04] MEDS: GABAPENTIN 400 MG CAPSULE PO SCH ×4 (11:17→20:27)
[2017-07-04] MEDS: LOSARTAN POTASSIUM 25 MG TABLET PO SCH (11:17)
[2017-07-04] MEDS: OMEPRAZOLE 20 MG CAPSULE PO SCH (11:17)
[2017-07-04] MEDS: PRAVASTATIN SODIUM 20 MG TABLET PO SCH (11:17)
[2017-07-04] MEDS: ALLOPURINOL 100 MG TABLET PO SCH (11:17)
[2017-07-04 11:23] VITALS: BP 151/66
[2017-07-04 18:52] VITALS: BP 103/62
[2017-07-04] MEDS: TraZODone HCL 150 MG TABLET PO SCH (20:27)
[2017-07-04 21:05] VITALS: BP 91/56
[2017-07-04 23:16] LABS: GLUCOSE,POINT OF CARE 131 MG/DL (70-110)
[2017-07-04] MEDS: CefoTEtan DISOD 1 GM/DEXTROSE 50 ML IV SCH (23:23)
[2017-07-04 23:36] VITALS: BP 99/70
[2017-07-05 04:00] VITALS: BP 116/72
[2017-07-05] MEDS: LEVOTHYROXINE SODIUM 50 MCG TABLET PO SCH (05:43)
[2017-07-05 06:23] LABS: GLUCOSE,POINT OF CARE 113 MG/DL (70-110)
[2017-07-05 07:08] LABS: BASOPHILS % (AUTO) 0.6 % (0.0-2.0); EOSINOPHILS % (AUTO) 4.4 % (1.0-6.0); HEMATOCRIT 31.3 % (36-46); HEMOGLOBIN 10.8 g/dL (12.0-16.0); LYMPHOCYTES # (AUTO) 1.8 K/uL (1.0-4.8); LYMPHOCYTES % (AUTO) 30.6 % (22.0-44.0); MEAN CORPUSCULAR HEMOGLOBIN 31.9 pg (26.0-34.0); MEAN CORPUSCULAR HGB CONC 34.6 G/dL (31.0-37.0); MEAN CORPUSCULAR VOLUME 92 fL (80-100); MONOCYTES # (AUTO) 0.5 K/uL (0.1-1.0); MONOCYTES % (AUTO) 8.5 % (2.0-9.0); NEUTROPHILS # (AUTO) 3.3 K/uL (1.8-7.7); NEUTROPHILS % (AUTO) 55.9 % (40.0-70.0); PLATELET COUNT (AUTO) 225 K/uL (150-450); RED CELL DISTRIBUTION WIDTH 15.8 % (11.5-14.5); WHITE BLOOD COUNT (AUTO) 5.8 K/uL (4.5-11.0)
[2017-07-05 07:17] LABS: CREATININE 1.21 mg/dL (0.60-1.30); MAGNESIUM 1.9 mg/dL (1.80-2.40); POTASSIUM 3.9 mmol/L (3.5-5.1)
[2017-07-05 07:29] VITALS: BP 90/62
[2017-07-05] MEDS: OMEPRAZOLE 20 MG CAPSULE PO SCH (08:01)
[2017-07-05] MEDS: GABAPENTIN 400 MG CAPSULE PO SCH ×4 (08:02→20:53)
[2017-07-05] MEDS: ALLOPURINOL 100 MG TABLET PO SCH (08:02)
[2017-07-05] MEDS: PRAVASTATIN SODIUM 20 MG TABLET PO SCH (08:02)
[2017-07-05] MEDS: LOSARTAN POTASSIUM 25 MG TABLET PO SCH (08:05)
[2017-07-05 11:51] LABS: GLUCOSE,POINT OF CARE 139 MG/DL (70-110)
[2017-07-05 12:13] VITALS: BP 107/67
[2017-07-05 15:18] VITALS: BP 107/70
[2017-07-05 17:12] LABS: GLUCOSE,POINT OF CARE 123 MG/DL (70-110)
[2017-07-05 19:49] VITALS: BP 103/60
[2017-07-05] MEDS: TraZODone HCL 150 MG TABLET PO SCH (20:53)
[2017-07-05] MEDS: INSULIN ASPART 100 UNITS/ML SQ PRN (20:53)
[2017-07-05 23:53] VITALS: BP 102/69
[2017-07-05] MEDS: CefoTEtan DISOD 1 GM/DEXTROSE 50 ML IV SCH (23:57)
[2017-07-06 04:27] LABS: GLUCOSE COMMENT 1 Received Meds; GLUCOSE,POINT OF CARE 213 MG/DL (70-110)
[2017-07-06 05:16] VITALS: BP 107/61
[2017-07-06] MEDS: LEVOTHYROXINE SODIUM 50 MCG TABLET PO SCH (06:21)
[2017-07-06] MEDS: INSULIN ASPART 100 UNITS/ML SQ PRN ×3 (06:24→20:42)
[2017-07-06 07:35] VITALS: BP 102/75
[2017-07-06] MEDS: GABAPENTIN 400 MG CAPSULE PO SCH ×4 (07:52→19:56)
[2017-07-06] MEDS: PRAVASTATIN SODIUM 20 MG TABLET PO SCH (07:52)
[2017-07-06] MEDS: ALLOPURINOL 100 MG TABLET PO SCH (07:53)
[2017-07-06] MEDS: LOSARTAN POTASSIUM 25 MG TABLET PO SCH (07:53)
[2017-07-06] MEDS: OMEPRAZOLE 20 MG CAPSULE PO SCH (07:53)
[2017-07-06 11:43] LABS: GLUCOSE,POINT OF CARE 141 MG/DL (70-110)
[2017-07-06 11:45] VITALS: BP 105/55
[2017-07-06 14:42] LABS: GLUCOSE,POINT OF CARE 114 MG/DL (70-110)
[2017-07-06 15:41] VITALS: BP 99/56
[2017-07-06 19:12] LABS: GLUCOSE,POINT OF CARE 178 MG/DL (70-110)
[2017-07-06] MEDS: TraZODone HCL 150 MG TABLET PO SCH (19:56)
[2017-07-06 20:00] VITALS: BP 98/51
[2017-07-06 23:27] LABS: GLUCOSE,POINT OF CARE 188 MG/DL (70-110)
[2017-07-06] MEDS: CefoTEtan DISOD 1 GM/DEXTROSE 50 ML IV SCH (23:44)
[2017-07-07] VITALS: BP 103/65
[2017-07-07 04:00] VITALS: BP 107/58
[2017-07-07] MEDS: LEVOTHYROXINE SODIUM 50 MCG TABLET PO SCH (05:50)
[2017-07-07 06:17] LABS: GLUCOSE,POINT OF CARE 134 MG/DL (70-110)
[2017-07-07] MEDS: LOSARTAN POTASSIUM 25 MG TABLET PO SCH (09:29)
[2017-07-07] MEDS: OMEPRAZOLE 20 MG CAPSULE PO SCH (09:30)
[2017-07-07] MEDS: ALLOPURINOL 100 MG TABLET PO SCH (09:30)
[2017-07-07] MEDS: PRAVASTATIN SODIUM 20 MG TABLET PO SCH (09:30)
[2017-07-07] MEDS: GABAPENTIN 400 MG CAPSULE PO SCH ×4 (09:30→20:30)
[2017-07-07 11:36] VITALS: BP 103/58
[2017-07-07] MEDS: INSULIN ASPART 100 UNITS/ML SQ PRN ×2 (12:10→20:34)
[2017-07-07 15:41] VITALS: BP 118/64
[2017-07-07 16:22] LABS: GLUCOSE,POINT OF CARE 204 MG/DL (70-110)
[2017-07-07 19:25] VITALS: BP 105/59
[2017-07-07] MEDS: TraZODone HCL 150 MG TABLET PO SCH (20:29)
[2017-07-07 23:37] LABS: GLUCOSE,POINT OF CARE 127 MG/DL (70-110)
[2017-07-07 23:37] LABS: GLUCOSE,POINT OF CARE 131 MG/DL (70-110)
[2017-07-08] VITALS (7 sets, daily range): BP systolic 95–114; BP diastolic 50–73
[2017-07-08] MEDS: CefoTEtan DISOD 1 GM/DEXTROSE 50 ML IV SCH ×2 (00:17→23:34)
[2017-07-08] MEDS: LEVOTHYROXINE SODIUM 50 MCG TABLET PO SCH (05:33)
[2017-07-08] MEDS: INSULIN ASPART 100 UNITS/ML SQ PRN ×4 (05:36→20:35)
[2017-07-08 06:12] LABS: GLUCOSE COMMENT 1 Received Meds; GLUCOSE,POINT OF CARE 152 MG/DL (70-110)
[2017-07-08] MEDS: PRAVASTATIN SODIUM 20 MG TABLET PO SCH (08:37)
[2017-07-08] MEDS: LOSARTAN POTASSIUM 25 MG TABLET PO SCH (08:37)
[2017-07-08] MEDS: ALLOPURINOL 100 MG TABLET PO SCH (08:37)
[2017-07-08] MEDS: OMEPRAZOLE 20 MG CAPSULE PO SCH (08:37)
[2017-07-08] MEDS: GABAPENTIN 400 MG CAPSULE PO SCH ×4 (08:37→19:41)
[2017-07-08 11:42] LABS: GLUCOSE COMMENT 1 Received Meds; GLUCOSE,POINT OF CARE 146 MG/DL (70-110)
[2017-07-08 17:08] LABS: GLUCOSE COMMENT 1 Received Meds; GLUCOSE,POINT OF CARE 161 MG/DL (70-110)
[2017-07-08] MEDS: TraZODone HCL 150 MG TABLET PO SCH (19:41)
[2017-07-08 23:47] LABS: GLUCOSE COMMENT 1 Juice/Food/D50 Given; GLUCOSE,POINT OF CARE 163 MG/DL (70-110)
[2017-07-09 04:14] VITALS: BP 103/57
[2017-07-09] MEDS: LEVOTHYROXINE SODIUM 50 MCG TABLET PO SCH (06:37)
[2017-07-09 07:43] LABS: GLUCOSE COMMENT 1 Juice/Food/D50 Given; GLUCOSE,POINT OF CARE 138 MG/DL (70-110)
[2017-07-09 08:19] VITALS: BP 109/54
[2017-07-09] MEDS: OMEPRAZOLE 20 MG CAPSULE PO SCH (08:49)
[2017-07-09] MEDS: PRAVASTATIN SODIUM 20 MG TABLET PO SCH (08:49)
[2017-07-09] MEDS: ALLOPURINOL 100 MG TABLET PO SCH (08:49)
[2017-07-09] MEDS: GABAPENTIN 400 MG CAPSULE PO SCH ×4 (08:49→21:06)
[2017-07-09] MEDS: LOSARTAN POTASSIUM 25 MG TABLET PO SCH (08:49)
[2017-07-09 11:10] VITALS: BP 106/63
[2017-07-09] MEDS: INSULIN ASPART 100 UNITS/ML SQ PRN ×3 (12:06→21:13)
[2017-07-09] MEDS ORDERED: HEPARIN SODIUM 1000 UNITS/NS 500 ML ONE (13:06)
[2017-07-09 16:45] VITALS: BP 109/65
[2017-07-09 17:37] LABS: GLUCOSE COMMENT 1 Received Meds; GLUCOSE,POINT OF CARE 143 MG/DL (70-110)
[2017-07-09 19:42] LABS: GLUCOSE COMMENT 1 Received Meds; GLUCOSE,POINT OF CARE 153 MG/DL (70-110)
[2017-07-09 19:59] VITALS: BP 96/57
[2017-07-09] MEDS: TraZODone HCL 150 MG TABLET PO SCH (21:06)
[2017-07-09 23:32] LABS: GLUCOSE COMMENT 1 Received Meds; GLUCOSE,POINT OF CARE 185 MG/DL (70-110)
[2017-07-09] MEDS: CefoTEtan DISOD 1 GM/DEXTROSE 50 ML IV SCH (23:44)
[2017-07-09 23:56] VITALS: BP 101/62
[2017-07-10 04:02] VITALS: BP 126/73
[2017-07-10] MEDS: INSULIN ASPART 100 UNITS/ML SQ PRN (06:21)
[2017-07-10] MEDS: LEVOTHYROXINE SODIUM 50 MCG TABLET PO SCH (06:24)
[2017-07-10 06:57] LABS: GLUCOSE COMMENT 1 Received Meds; GLUCOSE,POINT OF CARE 147 MG/DL (70-110)
[2017-07-10 07:34] VITALS: BP 100/57
[2017-07-10] MEDS: OMEPRAZOLE 20 MG CAPSULE PO SCH (08:09)
[2017-07-10] MEDS: LOSARTAN POTASSIUM 25 MG TABLET PO SCH (08:09)
[2017-07-10] MEDS: PRAVASTATIN SODIUM 20 MG TABLET PO SCH (08:10)
[2017-07-10] MEDS: GABAPENTIN 400 MG CAPSULE PO SCH ×3 (08:10→16:20)
[2017-07-10] MEDS: ALLOPURINOL 100 MG TABLET PO SCH (08:10)
[2017-07-10 11:34] VITALS: BP 100/61
[2017-07-10 16:22] VITALS: BP 102/64
[2017-07-10 16:32] LABS: GLUCOSE,POINT OF CARE 153 MG/DL (70-110)
[2017-07-10 16:32] LABS: GLUCOSE,POINT OF CARE 108 MG/DL (70-110)
== END 2017-07-10 16:30 | disposition home or self-care (01) | DRG 690 ==
LOC: 6N 14:17
PROVIDERS: ADMIT Internal Medicine; ATTEND Internal Medicine
PROC: 0BBC3ZX Excision of Right Upper Lung Lobe, Percutaneous Approach, Diagnostic (ICD-10-PCS; principal; 2017-07-02)
PROC: 0BBC3ZX Excision of Right Upper Lung Lobe, Percutaneous Approach, Diagnostic (ICD-10-PCS; 2017-07-04)
PROC: 02HV33Z Insertion of Infusion Device into Superior Vena Cava, Percutaneous Approach (ICD-10-PCS; 2017-07-09)
PROC: B548ZZA Ultrasonography of Superior Vena Cava, Guidance (ICD-10-PCS; 2017-07-09)
DX: N39.0 Urinary tract infection, site not specified (principal); E11.22 Type 2 diabetes mellitus with diabetic chronic kidney disease; E11.42 Type 2 diabetes mellitus with diabetic polyneuropathy; R91.8 Other nonspecific abnormal finding of lung field; E03.9 Hypothyroidism, unspecified; Z16.24 Resistance to multiple antibiotics; E78.00 Pure hypercholesterolemia, unspecified; F17.200 Nicotine dependence, unspecified, uncomplicated; G89.4 Chronic pain syndrome; I25.10 Atherosclerotic heart disease of native coronary artery without angina pectoris; J44.9 Chronic obstructive pulmonary disease, unspecified; B96.20 Unspecified Escherichia coli [E. coli] as the cause of diseases classified elsewhere; M48.07 Spinal stenosis, lumbosacral region; K21.9 Gastro-esophageal reflux disease without esophagitis; M10.9 Gout, unspecified; M81.0 Age-related osteoporosis without current pathological fracture; I13.10 Hypertensive heart and chronic kidney disease without heart failure, with stage 1 through stage 4 chronic kidney disease, or unspecified chronic kidney disease; N18.9 Chronic kidney disease, unspecified; Z79.899 Other long term (current) drug therapy; Z85.118 Personal history of other malignant neoplasm of bronchus and lung; Z87.440 Personal history of urinary (tract) infections; Z90.710 Acquired absence of both cervix and uterus; Z92.3 Personal history of irradiation; Z98.61 Coronary angioplasty status; Z79.84 Long term (current) use of oral hypoglycemic drugs
CPT/HCPCS: 32405; 36245; 36569; 71020; 71250; 76937; 82962; 83036; 83735; 84443; 84550; 87015; 87070; 87086; 87101; 87176; 87205; 88305; 88313; 88321; 88341; 88342; J0743; J1644; J1956; J2250; J3010; J3490; J7030; J7040; J7050